=== PATIENT | male | born 1955 | race Caucasian/White ===

== ENCOUNTER → 2016-09-26 | Outpatient (CLI) | payer OTHER ==
[~2016-09-26] MED LIST: ACET-1600 PO; ASCO10007 PO; CALC1CAP8 PO; CHOL200012 PO; FISH1CAP PO; GING250C PO; GLUC1TAB27 PO; IBUP800T PO; PYRI50CA PO
[2016-09-26 12:01] LABS: WHITE BLOOD COUNT 9.8 x10^3/uL (3.4-10)
[2016-09-26 12:12] LABS: BLOOD UREA NITROGEN 23 mg/dL (7-18)
[2016-09-26 12:16] LABS: ASPARTATE AMINO TRANSFERASE 21 U/L (15-37)
[2016-09-26 13:45] LABS: HIV 1&2 ANTIBODY SCREEN Nonreactive (Nonreactive); HIV-1 p24 ANTIGEN Nonreactive (Nonreactive)
== END | disposition home or self-care (01) ==
LOC: STAR 10:54
PROVIDERS: ATTEND Orthopaedic Surgery Orthopaedic Surgery of the Spine
DX: Z01.818 Encounter for other preprocedural examination (principal); M54.12 Radiculopathy, cervical region; M47.894 Other spondylosis, thoracic region; R79.1 Abnormal coagulation profile
CPT/HCPCS: 36415; 71020; 80053; 80074; 81003; 85025; 85610; 85651; 85730; 86703; 87899; 93005; G0435

== ENCOUNTER 2020-06-22 16:29 | Emergency (ER) | payer OTHER ==
[~2020-06-22] VITALS: Ht 185.4 cm; Wt 97.8 kg
[~2020-06-22 16:29] MED LIST changes: +ASCO100019 PO; -ASCO10007 PO; -CHOL200012 PO; +CHOL200074 PO; +CYCL10TA2 PO; +IBUP-1223 PO; -IBUP800T PO; +OXYC5CAP2 PO
--- NOTE | 2020-06-22 16:40 | NUR ---
EKG DONE IN TRIAGE.
--- NOTE | 2020-06-22 17:01 | NUR ---
PT PRESENTS TO ED WITH C/O CHEST PAIN RELATED TO SHOULDER INJURY THAT HAPPENED 2 YEARS AGO. PT STATES PAIN FROM SHOULDER RADIATES ACROSS CHEST AND BEHIND SCAPULA, STATES PHYSICAL EXERTION INCREASES PAIN. PT DESCRIBES CP DULL ACHE AND INTERMITTENT FOR THE LAST MONTH. PT STATES THEY HAD COVID IN JANUARY 2020 AND HAS EXPERIENCED DISCOMFORT EVER SINCE. PT DENIES N/V, STATES THEY ARE SOB. PT A&O, RESPS EVEN AND UNLABORED, VSS, ALL MONITORS ATTACHED, NSR, NADN. DINORA NAJERA AT BEDSIDE FOR EVAL.
[2020-06-22] MEDS ORDERED: NITROGLYCERIN SINGLE TAB 0.4 MG SL ONE (17:23)
[2020-06-22] MEDS ORDERED: MORPHINE SULFATE 4 MG/ML, 1ML ONE (17:23)
[2020-06-22] MEDS ORDERED: NITROGLYCERIN SINGLE TAB 0.4 MG SL PRN (17:30)
[2020-06-22] MEDS ORDERED: MORPHINE SULFATE 4 MG/ML, 1ML IVPush PRN (17:30)
[2020-06-22] MEDS ORDERED: SODIUM CHLORIDE FLUSH 10ML SYR IVF ONE (17:30)
[2020-06-22 18:09] LABS: BASOPHILS % (AUTO) 0 % (0-1); EOSINOPHILS % (AUTO) 1 % (1-7); LYMPHOCYTES % (AUTO) 32 % (22-44); MEAN CORPUSCULAR HEMOGLOBIN 30.5 pg (27.5-34.5); MEAN CORPUSCULAR HGB CONC 33.9 g/dL (33.2-36.2); MEAN PLATELET VOLUME 8.1 fL (7.4-10.4); MONOCYTES % (AUTO) 7 % (2-9); NEUTROPHILS % (AUTO) 59 % (42-75); PLATELET COUNT 258 x10^3/uL (130-400); RED BLOOD COUNT 5.07 x10^6/uL (4.38-5.82); RED CELL DISTRIBUTION WIDTH 13.2 % (9.4-14.8)
--- NOTE | 2020-06-22 18:16 | NUR ---
PT SITTING IN BED, A&O, RESPS EVEN AND UNLABORED, MONITORS ATTACHED, NSR, VSS, NADN. PT MEDICATED FOR PAIN PER ORDER, TOLERATED WELL, STATES P[AIN HAS DECREASED TO 3/10. AT BEDSIDE, CALL LIGHT IN REACH. AWAITING LAB RESULTS AND DISPO.
[2020-06-22 18:17] LABS: MD NO
[2020-06-22 18:18] LABS: ALBUMIN 3.9 g/dL (3.4-5.0); ANION GAP 6 mmol/L (5-15); CALCIUM 8.7 mg/dL (8.5-10.1); CHLORIDE 112 mmol/L (98-107)
[2020-06-22 18:25] LABS: ALANINE AMINOTRANSFERASE 28 U/L (12-78); ALKALINE PHOSPHATASE 86 U/L (45-117); BILIRUBIN,TOTAL 0.3 mg/dL (0.2-1.0); CREATININE 1.06 mg/dL (0.7-1.3); TOTAL PROTEIN 7.2 g/dL (6.4-8.2); TROPONIN I 0.022 ng/mL (0.000-0.045)
[2020-06-22 19:05] VITALS: BP 144/76
--- NOTE | 2020-06-22 19:06 | NUR ---
Report from Gilson SILVERIO. PT RESTING IN BED WITH AT BEDSIDE. POSTIONED TO COMFORT. VSS. OVERTON.
--- NOTE | 2020-06-22 19:28 | NUR ---
Patient/Caregiver given discharge instructions and they have confirmed that they understand the instructions. Patient ambulatory with steady gait.
== END 2020-06-22 19:29 | disposition home or self-care (01) ==
LOC: ED 19:06
DX: M25.512 Pain in left shoulder (principal); R07.2 Precordial pain; F17.210 Nicotine dependence, cigarettes, uncomplicated
CPT/HCPCS: 36415; 71045; 80053; 83880; 84484; 85025; 85379; 93005; 96374; 99285; J2270

== ENCOUNTER 2020-06-27 23:42 | Emergency (ER) | payer OTHER ==
[~2020-06-27] VITALS: Ht 185.4 cm; Wt 96.7 kg
[2020-06-27 23:46] VITALS: BP 142/53
--- NOTE | 2020-06-28 00:12 | NUR ---
NIL X 1
--- NOTE | 2020-06-28 00:27 | NUR ---
PT NILX2 AT THIS TIME.
--- NOTE | 2020-06-28 00:45 | NUR ---
NIL X3
[2020-06-29] MEDS ORDERED: DOCU-131 PO (15:47)
[2020-06-29] MEDS ORDERED: OXYC1TAB14 PO (15:48)
== END 2020-06-28 00:48 | disposition left against medical advice (07) ==
LOC: ED 06-28 00:12
DX: R10.9 Unspecified abdominal pain (principal); Z53.21 Procedure and treatment not carried out due to patient leaving prior to being seen by health care provider
CPT/HCPCS: 76700; 99284

== ENCOUNTER 2020-06-28 01:04 | Inpatient (IN) | payer OTHER ==
[~2020-06-28] VITALS: Ht 185.4 cm; Wt 99.3 kg
--- NOTE | 2020-06-28 01:23 | NUR ---
pt has c/o right flank pain and urq pain for last 12 hrs
[2020-06-28] MEDS ORDERED: SODIUM CHLORIDE FLUSH 10ML SYR IVF ONE (01:30)
[2020-06-28] MEDS ORDERED: KETOROLAC 30 MG/1 ML ONE (01:34)
[2020-06-28] MEDS ORDERED: ONDANSETRON 2MG/ML, 2ML ONE ×2 (01:59→18:48)
[2020-06-28] MEDS ORDERED: MAALOX/HYOSCYAMINE/LIDOCAINE 45 ML BTL ONE (01:59)
[2020-06-28] MEDS ORDERED: ONDANSETRON 2MG/ML, 2ML IVPush ONE (02:00)
[2020-06-28] MEDS ORDERED: MAALOX/HYOSCYAMINE/LIDOCAINE 45 ML BTL PO ONE (02:00)
[2020-06-28] MEDS ORDERED: KETOROLAC 30 MG/1 ML IVPush ONE (02:00)
[2020-06-28 02:49] LABS: ALANINE AMINOTRANSFERASE 23 U/L (12-78); ALBUMIN 3.4 g/dL (3.4-5.0); ALKALINE PHOSPHATASE 79 U/L (45-117); ANION GAP 6 mmol/L (5-15); BASOPHILS % (AUTO) 1 % (0-1); BILIRUBIN,TOTAL 0.7 mg/dL (0.2-1.0); CALCIUM 8.7 mg/dL (8.5-10.1); CHLORIDE 113 mmol/L (98-107); CREATININE 1.04 mg/dL (0.7-1.3); EOSINOPHILS % (AUTO) 0 % (1-7); LYMPHOCYTES % (AUTO) 11 % (22-44); MEAN CORPUSCULAR HEMOGLOBIN 30.1 pg (27.5-34.5); MEAN CORPUSCULAR HGB CONC 33.8 g/dL (33.2-36.2); MEAN PLATELET VOLUME 8.3 fL (7.4-10.4); MONOCYTES % (AUTO) 12 % (2-9); NEUTROPHILS % (AUTO) 77 % (42-75); PLATELET COUNT 264 x10^3/uL (130-400); RED BLOOD COUNT 5.26 x10^6/uL (4.38-5.82); RED CELL DISTRIBUTION WIDTH 13.2 % (9.4-14.8); TOTAL PROTEIN 7.5 g/dL (6.4-8.2)
--- NOTE | 2020-06-28 02:49 | NUR ---
PT MEDICATED PER APR, NAD, RESTING ON GURNEY, UA OBTIANED AND SENT TO LAB, VSS. WCTM. WAITING FOR UA RESULTS. BED IN LOWEST, RAILS ENGAGED, CALL LIGHT ON LAP
[2020-06-28 02:50] LABS: MD SCAN
[2020-06-28 03:06] LABS: MICROSCOPIC NOT IND
[2020-06-28] MEDS ORDERED: OMNIPAQUE 350 MG/ML, 100ML BOTTLE ONE (03:18)
--- NOTE | 2020-06-28 03:45 | NUR ---
pt nad, resting on gurney, eyes closed, appears comfortable at this time. even and unlabored respirations noted. waiting for ct read, bed in lowest, rails engaged, call light on lap, tm.
--- NOTE | 2020-06-28 04:59 | NUR ---
STAT RAD CALLED AGAIN (X2) AT THIS TIME.
[2020-06-28] MEDS ORDERED: CEFTRIAXONE 1,000 MG in DEXTROSE 5% 50 ML IVPB ONE (05:00)
--- NOTE | 2020-06-28 05:00 | NUR ---
PT RESTING ON GURNEY, NAD, APPEARS COMFORTABLE, NO CHANGE IN CONDITION, BED IN LOWEST, RAILS ENGAGED, CALL LIGHT ON LAP, WCTM.
[2020-06-28] MEDS ORDERED: PROMETHAZINE 25 MG/ML, 1ML IM PRN (05:30)
[2020-06-28] MEDS: SODIUM CHLORIDE 0.9% 1,000 ML IV SCH ×2 (05:30→13:35)
[2020-06-28] MEDS ORDERED: BISACODYL 10 MG SUPP PR PRN (05:30)
[2020-06-28] MEDS ORDERED: ONDANSETRON ODT 4 MG PO PRN (05:30)
[2020-06-28] MEDS ORDERED: ACETAMINOPHEN 325 MG TABLET PO PRN ×2 (05:30→19:00)
[2020-06-28] MEDS ORDERED: ONDANSETRON 2MG/ML, 2ML IVPush PRN ×2 (05:30→19:00)
[2020-06-28] MEDS ORDERED: POLYETHYLENE GLYCOL 17 GM PACKET PO PRN (05:30)
[2020-06-28] MEDS ORDERED: DOCUSATE 100 MG CAPSULE PO PRN (05:30)
[2020-06-28] MEDS ORDERED: MORPHINE SULFATE 4 MG/ML, 1ML ONE (05:44)
[2020-06-28] MEDS ORDERED: METRONIDAZOLE PMX 500MG/100ML 100 ML ONE (05:44)
[2020-06-28] MEDS: morphine SULFATE 10 MG/ML, 1ML IVPush PRN ×2 (05:50→09:06)
[2020-06-28] MEDS: METRONIDAZOLE PMX 500MG/100ML 100 ML IV SCH ×3 (05:51→23:02)
[2020-06-28 06:11] LABS: INTERNATIONAL NORMALIZED RATIO 1.03 (0.93-1.1)
[2020-06-28 06:12] VITALS: BP 144/77
[2020-06-28] MEDS ORDERED: INDOCYANINE GREEN 25 MG VIAL IVPush STA ×2 (11:22→11:28)
[2020-06-28] MEDS ORDERED: INDOCYANINE GREEN 25 MG VIAL ONE ×2 (11:43→15:10)
[2020-06-28] MEDS: MORPHINE SULFATE 4 MG/ML, 1ML IVPush PRN ×4 (12:38→23:02)
[2020-06-28] MEDS: CEFOXITIN 1,000 MG in DEXTROSE 5% 50 ML IV SCH ×2 (12:49→22:13)
[2020-06-28 14:53] VITALS: BP 133/64
[2020-06-28] MEDS ORDERED: EPINEPHRINE 1 MG/ML, 1ML ONE (15:35)
[2020-06-28] MEDS ORDERED: BUPIVACAINE/PF 0.5% ONE (15:35)
[2020-06-28] MEDS ORDERED: PROPOFOL 50 ML ONE (17:50)
[2020-06-28] MEDS ORDERED: MIDAZOLAM 1 MG/ML, 2ML ONE (17:50)
[2020-06-28] MEDS ORDERED: FENTANYL PF 250 MCG/5ML ONE (17:51)
[2020-06-28] MEDS ORDERED: CEFAZOLIN 1,000 MG ONE (18:38)
[2020-06-28] MEDS ORDERED: ROCURONIUM 10 MG/ML,10ML ONE (18:38)
[2020-06-28] MEDS ORDERED: DEXAMETHASONE 4 MG/ML, 1ML ONE (18:48)
[2020-06-28] MEDS ORDERED: MEPERIDINE/PF 25MG/0.5ML IVPush PRN (19:00)
[2020-06-28] MEDS ORDERED: OXYcodone 5 MG/5 ML ORAL.SOL UDC PO PRN (19:00)
[2020-06-28] MEDS ORDERED: LABETALOL 5MG/ML, 20ML IV PRN (19:00)
[2020-06-28] MEDS ORDERED: EPHEDRINE 50 MG/ML, 1ML IM PRN (19:00)
[2020-06-28] MEDS ORDERED: DIAZEPAM 5 MG/ML, 2ML IVPush PRN (19:00)
[2020-06-28] MEDS ORDERED: morphine SULFATE 10 MG/ML, 1ML IVPush PRN (19:00)
[2020-06-28] MEDS ORDERED: DIPHENHYDRAMINE 50 MG/ML, 1ML IVPush PRN (19:00)
[2020-06-28] MEDS ORDERED: EPHEDRINE 50 MG/ML, 1ML IVPush PRN (19:00)
[2020-06-28] MEDS ORDERED: PROMETHAZINE 25 MG/ML, 1ML IVPush PRN (19:00)
[2020-06-28] MEDS ORDERED: PROPOFOL 10 MG/ML, 20ML ONE (19:12)
[2020-06-28] MEDS ORDERED: SUCCINYLCHOLINE 20 MG/ML, 10ML ONE (19:13)
[2020-06-28] MEDS ORDERED: LABETALOL 5MG/ML, 20ML ONE (19:16)
[2020-06-28] MEDS ORDERED: FENTANYL PF 100 MCG/2ML ONE (20:38)
[2020-06-28] MEDS ORDERED: OXYcodone 5 MG/5 ML ORAL.SOL UDC ONE (20:39)
[2020-06-28] MEDS: FENTANYL PF 100 MCG/2ML IV PRN ×2 (20:40→20:45)
[2020-06-28 21:53] VITALS: BP 144/82
[2020-06-28] MEDS: OXYcodone IR 5MG TABLET PO PRN (23:50)
[2020-06-29 00:14] VITALS: BP 129/75
[2020-06-29] MEDS: MORPHINE SULFATE 4 MG/ML, 1ML IVPush PRN ×5 (02:07→19:23)
[2020-06-29 05:30] LABS: BASOPHILS % (AUTO) 0 % (0-1); EOSINOPHILS % (AUTO) 0 % (1-7); LYMPHOCYTES % (AUTO) 4 % (22-44); MEAN CORPUSCULAR HEMOGLOBIN 30.6 pg (27.5-34.5); MEAN PLATELET VOLUME 8.2 fL (7.4-10.4); MONOCYTES % (AUTO) 7 % (2-9); NEUTROPHILS % (AUTO) 89 % (42-75); PLATELET COUNT 252 x10^3/uL (130-400); RED BLOOD COUNT 4.56 x10^6/uL (4.38-5.82); RED CELL DISTRIBUTION WIDTH 13.7 % (9.4-14.8)
[2020-06-29 05:36] LABS: MD NO
[2020-06-29 05:44] LABS: CHLORIDE 110 mmol/L (98-107)
[2020-06-29 05:59] LABS: ALANINE AMINOTRANSFERASE 34 U/L (12-78); ALBUMIN 2.8 g/dL (3.4-5.0); ALKALINE PHOSPHATASE 63 U/L (45-117); ANION GAP 5 mmol/L (5-15); BILIRUBIN,TOTAL 0.7 mg/dL (0.2-1.0); CALCIUM 8.2 mg/dL (8.5-10.1); CHOL/HDL RATIO 2.5; CHOLESTEROL, TOTAL 127 mg/dL (140-239); CREATININE 1.07 mg/dL (0.7-1.3); HDL CHOL % 40 % (26-37); HDL CHOLESTEROL (DIRECT) 51 mg/dL (40-60); LDL CHOLESTEROL,CALCULATED 69 mg/dL (54-169); LDL/HDL RATIO 1.4 (0.5-3.0); TOTAL PROTEIN 6.9 g/dL (6.4-8.2); TRIGLYCERIDES 34 mg/dL (50-200); VLDL CHOLESTEROL 7 mg/dL (0-25)
[2020-06-29] MEDS: CEFOXITIN 1,000 MG in DEXTROSE 5% 50 ML IV SCH ×3 (06:15→22:04)
[2020-06-29 06:54] VITALS: BP 111/69
[2020-06-29] MEDS: METRONIDAZOLE PMX 500MG/100ML 100 ML IV SCH ×3 (07:19→23:11)
[2020-06-29 12:05] VITALS: BP 128/73
[2020-06-29] MEDS ORDERED: DOCU-131 PO (15:47)
[2020-06-29] MEDS ORDERED: OXYC1TAB14 PO (15:48)
[2020-06-29 17:20] VITALS: BP 123/70
[2020-06-29 18:56] VITALS: BP 124/67
[2020-06-30 00:52] VITALS: BP 121/66
[2020-06-30] MEDS: OXYcodone IR 5MG TABLET PO PRN ×4 (02:35→21:23)
[2020-06-30] MEDS: CEFOXITIN 1,000 MG in DEXTROSE 5% 50 ML IV SCH ×3 (05:54→22:09)
[2020-06-30] MEDS: METRONIDAZOLE PMX 500MG/100ML 100 ML IV SCH ×3 (07:00→23:00)
[2020-06-30 09:51] VITALS: BP 119/73
[2020-06-30 11:05] VITALS: BP 129/75
[2020-06-30 11:08] LABS: BASOPHILS % (AUTO) 0 % (0-1); EOSINOPHILS % (AUTO) 0 % (1-7); LYMPHOCYTES % (AUTO) 10 % (22-44); MEAN CORPUSCULAR HEMOGLOBIN 30.2 pg (27.5-34.5); MEAN CORPUSCULAR HGB CONC 33.2 g/dL (33.2-36.2); MONOCYTES % (AUTO) 8 % (2-9); NEUTROPHILS % (AUTO) 82 % (42-75); PLATELET COUNT 268 x10^3/uL (130-400); RED BLOOD COUNT 4.55 x10^6/uL (4.38-5.82); RED CELL DISTRIBUTION WIDTH 13.4 % (9.4-14.8)
[2020-06-30 11:11] LABS: ALANINE AMINOTRANSFERASE 30 U/L (12-78); ALBUMIN 2.8 g/dL (3.4-5.0); ANION GAP 4 mmol/L (5-15); CALCIUM 8.6 mg/dL (8.5-10.1); CHLORIDE 104 mmol/L (98-107); CREATININE 1.06 mg/dL (0.7-1.3)
[2020-06-30 11:13] LABS: ALKALINE PHOSPHATASE 69 U/L (45-117); BILIRUBIN,TOTAL 0.4 mg/dL (0.2-1.0)
[2020-06-30 11:20] LABS: MD SCAN
[2020-06-30] MEDS ORDERED: OMNIPAQUE 350 MG/ML, 75ML BOTTLE ONE (11:33)
[2020-06-30 13:13] VITALS: BP 128/76
[2020-06-30] MEDS: HEPARIN 5,000 UNITS/ML, 1ML SQ SCH ×2 (13:54→22:09)
[2020-06-30 19:31] VITALS: BP 124/70
[2020-07-01 01:58] VITALS: BP 135/65
[2020-07-01 05:24] LABS: BASOPHILS % (AUTO) 0 % (0-1); EOSINOPHILS % (AUTO) 1 % (1-7); LYMPHOCYTES % (AUTO) 13 % (22-44); MEAN CORPUSCULAR HEMOGLOBIN 30.7 pg (27.5-34.5); MEAN CORPUSCULAR HGB CONC 33.9 g/dL (33.2-36.2); MEAN PLATELET VOLUME 7.8 fL (7.4-10.4); MONOCYTES % (AUTO) 9 % (2-9); NEUTROPHILS % (AUTO) 78 % (42-75); PLATELET COUNT 272 x10^3/uL (130-400); RED BLOOD COUNT 4.32 x10^6/uL (4.38-5.82); RED CELL DISTRIBUTION WIDTH 13.2 % (9.4-14.8)
[2020-07-01 05:27] LABS: MD NO
[2020-07-01 05:30] LABS: ANION GAP 4 mmol/L (5-15); CALCIUM 8.6 mg/dL (8.5-10.1); CHLORIDE 103 mmol/L (98-107); CREATININE 1.09 mg/dL (0.7-1.3)
[2020-07-01] MEDS: OXYcodone IR 5MG TABLET PO PRN ×3 (05:41→14:10)
[2020-07-01] MEDS: CEFOXITIN 1,000 MG in DEXTROSE 5% 50 ML IV SCH ×2 (06:05→14:16)
[2020-07-01] MEDS: HEPARIN 5,000 UNITS/ML, 1ML SQ SCH ×2 (06:05→14:17)
[2020-07-01 06:30] VITALS: BP 132/73
[2020-07-01] MEDS: METRONIDAZOLE PMX 500MG/100ML 100 ML IV SCH ×2 (07:28→15:17)
[2020-07-01] MEDS ORDERED: SENNA/DOCUSATE TABLET PO SCH (10:30)
[2020-07-01] MEDS ORDERED: LACTULOSE 20 GM/30 ML UDC PO SCH (10:30)
[2020-07-01 13:28] VITALS: BP 120/74
[2020-07-01] MEDS ORDERED: METR500T PO (15:36)
[2020-07-01] MEDS ORDERED: CEFD300C37 PO (15:36)
== END 2020-07-01 18:15 | disposition home or self-care (01) | DRG 417 ==
LOC: ED 01:21 → EDIP 05:14 → 4NW 06:04
PROVIDERS: ADMIT Internal Medicine; ATTEND Internal Medicine
PROC: 0FT44ZZ Resection of Gallbladder, Percutaneous Endoscopic Approach (ICD-10-PCS; principal; 2020-06-28 19:00)
DX: K81.0 Acute cholecystitis (principal); J96.01 Acute respiratory failure with hypoxia; J98.11 Atelectasis; K66.0 Peritoneal adhesions (postprocedural) (postinfection); R11.0 Nausea; Z20.822 Contact with and (suspected) exposure to COVID-19
CPT/HCPCS: 36415; 99285; S0020; 71275; 74177; 80048; 80053; 80061; 81003; 83036; 83690; 83735; 84100; 84443; 85025; 85610; 87040; 87635; 88304; G0378; J0171; J0690; J0696; J1100; J1644; J1885; J2250; J2405; J2704; J3010; Q0162; Q9967; J0330; J0694; J2270; J7030